=== PATIENT | male | born 1935 | race Caucasian/White ===

== ENCOUNTER → 2017-01-19 | Outpatient (CLI) | payer MEDICARE, OTHER | LOC: MW.CHUR 10:13 | PROVIDERS: ATTEND Urology | DX: R39.15 Urgency of urination (principal) | CPT/HCPCS: 36415; 51798; 81001; 84153; 99202 ==

== ENCOUNTER 2019-06-10 14:40 | Emergency (ER) | payer MEDICARE, OTHER ==
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
--- NOTE | 2019-06-10 15:32 | CT ---
Head CT Technique: Multiple axial sections through the brain were obtained. Intravenous contrast was not utilized. Comparison: Prior head CT study of 07/07/2015. Findings: Ventricles along with basal cisterns and sulci over the convexities are moderately prominent. Diffuse atherosclerotic calcification is seen within the vertebral vessels and carotid siphon. Minimal diminished density is noted within the periventricular compatible with small vessel ischemic demyelination change. No other abnormal parenchymal densities are seen. No evidence of intracranial hemorrhage. No midline shift or mass effect is seen. Slight mucosal thickening is noted within the right maxillary sinus and ethmoid sinuses. No acute paranasal sinus findings are seen. Minimal areas of mucosal thickening are seen within the inferior right mastoid sinus. No acute calvarial abnormality is seen. Impression: 1. Sinus findings which are felt to be pre-existing and incidental. 2. Senescent change as noted above. 3. No acute intracranial abnormality is appreciated. Diagnostic code #2 MTDD
[2019-06-10] MEDS ORDERED: 50% Dextrose in Water 50 ML Syringe IVPUSH ONE (15:37)
[2019-06-10 15:42] LABS: BLOOD UREA NITROGEN,BUN 24 mg/dL (7.0-18.0); CARBON DIOXIDE,CO2 29.1 mmol/L (21.0-32.0); CHLORIDE,CL 106 mmol/L (98-107); GLUCOSE RANDOM 82 mg/dL (74-106); LIPASE 52 U/L (73-393); POTASSIUM,K 4.3 mmol/L (3.5-5.1); SODIUM,NA 142 mmol/L (136-148)
--- NOTE | 2019-06-10 15:56 | CT ---
CT cervical spine Technique: Multiple axial sections were obtained from above C1 inferiorly through the T4 level. Reconstructed sagittal and coronal images were reviewed. Findings: Severe disc space narrowing at C5-C6 and C6-C7. Minimal spondylolisthesis at C5-C6 compatible with degenerative apophyseal change. Other degenerative apophyseal change is scattered throughout the spine. Degenerative change is noted between the dens anterior arch of C1. Bony structures are osteoporotic. No fracture is appreciated. No bony central canal stenosis. Impression: 1. Degenerative change and osteopenia. 2. Nothing acute is appreciated on CT study of the cervical spine. Diagnostic code #2 MTDD
--- NOTE | 2019-06-10 15:57 | CT ---
CT lumbar spine Technique: Multiple axial sections through the lumbar spine were obtained. Reconstructed coronal and sagittal images were reviewed. Findings: Vertebral body heights are maintained. Bony structures are osteopenic. Scattered degenerative apophyseal change is seen throughout lumbar spine. No abnormal subluxation is seen. No fracture is identified. No abnormal subluxation is seen. Nonobstructing calculi are seen within the left kidney. Impression: 1. Scattered apophyseal change throughout the lumbar spine. Osteopenia. Nonobstructing calculi within the left kidney. 2. No acute fracture or abnormal subluxation is seen. Diagnostic code #2 MTDD
--- NOTE | 2019-06-10 15:57 | CR ---
Chest: AP view of the chest was obtained. Comparison: No prior chest x-ray. Heart size and mediastinum are normal. Lungs are clear. Bony structures are osteopenic. Impression: Nothing acute is appreciated on AP chest x-ray. Diagnostic code #1 MTDD
--- NOTE | 2019-06-10 16:06 | CT ---
CT thoracic spine Technique: Multiple axial sections the thoracic spine were obtained. Reconstructed coronal and sagittal images were reviewed. Comparison: No prior thoracic spine imaging. Findings: Moderate compression deformity is noted of approximately T5. No definite acute fracture lines are seen and this is most likely old. Other vertebral body heights are maintained. Mild disc space narrowing is noted within the mid thoracic spine. No discrete fracture or abnormal subluxation is seen. No abnormal subluxation is noted. Impression: 1. Compression deformity of T5 most likely old. 2. Osteopenia and degenerative change. 3. Nothing acute is definitely seen. Diagnostic code #3 MTDD
== END 2019-06-10 16:45 | disposition home or self-care (01) ==
LOC: MW.ED 14:40
DX: E16.2 Hypoglycemia, unspecified (principal); Z88.5 Allergy status to narcotic agent; Z88.6 Allergy status to analgesic agent; Z79.82 Long term (current) use of aspirin; V49.9XXA Car occupant (driver) (passenger) injured in unspecified traffic accident, initial encounter
CPT/HCPCS: 36415; 70450; 71045; 72125; 72128; 72131; 80053; 81001; 82962; 83690; 85025; 93005; 96374; 99285; J7060; 99283

== ENCOUNTER 2019-08-03 16:14 | Emergency (ER) | payer MEDICARE, OTHER ==
[2019-08-03] MEDS ORDERED: Sodium Chloride 0.9% 2.5 ML Syringe FLUSH PRN (16:21)
[2019-08-03] MEDS ORDERED: Sodium Chloride 0.9% 10 ML Syringe FLUSH PRN (16:21)
--- NOTE | 2019-08-03 16:53 | CR ---
INDICATION: dizziness INDICATION: Dizziness TECHNIQUE: Chest 1 view. COMPARISON: 06/10/2019 FINDINGS: Cardiovascular and mediastinum: Heart size and vasculature are normal in caliber and appearance. Mediastinum is within normal limits. Lungs and pleural space: Lungs are clear. No sign of infiltrate. Stable probable 5 millimeter calcified granuloma right lower lobe. No sign of pleural effusion. No pneumothorax. Bones and soft tissues: No significant findings. IMPRESSION: No acute pulmonary or cardiac abnormalities. Stable 5 millimeter probable calcified granuloma right lower lobe. Dictated by Frank Del Valle MD @ 08/03/2019 4:50:52 PM Dictated by: Frank Del Valle MD @ 08/03/2019 16:51:01 (Electronically Signed)
[2019-08-03] MEDS ORDERED: Sodium Chloride 0.9% 1,000 ML IV ONE (16:58)
--- NOTE | 2019-08-03 16:58 | EDM.PDOC ---
ED HPI GENERAL MEDICAL PROBLEM - General Chief Complaint: General Stated Complaint: DIZZINESS AND DIABETIC Time Seen by Provider: 08/03/19 16:21 Source of Information: Reports: Patient History Limitations: Reports: No Limitations - History of Present Illness INITIAL COMMENTS - FREE TEXT/NARRATIVE: HISTORY AND PHYSICAL: History of present illness: Patient is an 84-year-old male who presents to the ED today with concern of dizziness and elevated sugars from his usual baseline over the past 3 days. Patient states that over the past 3 days his blood sugar has been around 200 at home and this is not typical for him. Patient states usually his blood sugars around 100. Patient states he also notices felt dizzy over the past couple days and thought maybe it was associated to his blood sugar. Patient has a history of type 1 diabetes. Patient denies any other symptoms or concerns. Patient denies fever, chills, chest pain, shortness of breath, or cough. Denies headache, neck stiff ness, change in vision, syncope, or near syncope. Denies nausea, vomiting, abdominal pain, diarrhea, constipation, or dysuria. Has not noted any blood in urine or stool. Patient has been eating and drinking appropriately. Review of systems: As per history of present illness and below otherwise all systems reviewed and negative. Past medical history: As per history of present illness and as reviewed below otherwise noncontributory. Surgical history: As per history of present illness and as reviewed below otherwise noncontributory. Social history: See social history for further information Family history: As per history of present illness and as reviewed below otherwise noncontributory. Physical exam: General: Patient is alert, oriented, and in no acute distress. Patient laying comfortably on exam table. HEENT: Atraumatic, normocephalic, pupils equal and reactive bilaterally, negative for conjunctival pallor or scleral icterus, mucous membranes moist, TMs normal bilaterally, throat clear, neck supple, nontender, trachea midline. No drooling or trismus noted. No meningeal signs. No hot potato voice noted. Lungs: Clear to auscultation, breath sounds equal bilaterally, chest nontender. Heart: S1S2, regular rate and rhythm without overt murmur Abdomen: Soft, nondistended, nontender. Negative for masses or hepatosplenomegaly. Negative for costovertebral tenderness. Pelvis: Stable nontender. Genitourinary: Deferred. Rectal: Deferred. Skin: Intact, warm, dry. No lesions or rashes noted. Extremities: Atraumatic, negative for cords or calf pain. Neurovascular unremarkable. Neuro: Awake, alert, oriented. Cranial nerves II through XII unremarkable. Cerebellum unremarkable. Motor and sensory unremarkable throughout. Exam nonfocal. Notes: Admission for observation was offered to patient but he declines at this time. All risks versus benefits discussed with patient and expresses understanding. Voices understanding and is agreeable to plan of care. Denies any further questions or concerns at this time. Diagnostics: CBC, CMP, UA, EKG, chest x-ray, troponin, head CT, urine culture Therapeutics: NS Prescription: Keflex Impression: Dizziness Urinary tract infection Plan: 1. Take medication as prescribed. You can use Tylenol as directed for pain and discomfort. 2. Follow-up with her primary care provider as discussed. Return to the ED as needed and as discussed. Definitive disposition and diagnosis as appropriate pending reevaluation and review of above. - Related Data Allergies Allergy/AdvReac Type Severity Reaction Status Date / Time acetaminophen [From Vicodin] Allergy weird Verified 08/03/19 16:30 feeling codeine Allergy unsure Verified 08/03/19 16:30 hydrocodone bitartrate Allergy weird Verified 08/03/19 16:30 [From Vicodin] feeling Home Meds: Home Meds Insulin Aspart [Novolog Flexpen] 3 units SQ TIDAC 07/07/15 [History] Insulin Glarg,Human.Rec.Analog [Lantus] 6 units SQ ACBREAKFAST 07/07/15 [History ] Aspirin 81 mg PO DAILY 06/10/19 [History] Past Medical History HEENT History: Reports: None Cardiovascular History: Reports: None Respiratory History: Reports: None Gastrointestinal History: Reports: None Genitourinary History: Reports: None Musculoskeletal History: Reports: None Neurological History: Reports: None Psychiatric History: Reports: None Endocrine/Metabolic History: Reports: Diabetes, Type I Hematologic History: Reports: None Immunologic History: Reports: None Oncologic (Cancer) History: Reports: None Dermatologic History: Reports: None - Infectious Disease History Infectious Disease History: Reports: Measles - Past Surgical History Head Surgeries/Procedures: Reports: None HEENT Surgical History: Reports: None Cardiovascular Surgical History: Reports: Other (See Below) Other Cardiovascular Surgeries/Procedures: Angioplasty. Respiratory Surgical History: Reports: None GI Surgical History: Reports: None Male Surgical History: Reports: None Endocrine Surgical History: Reports: None Neurological Surgical History: Reports: None Musculoskeletal Surgical History: Reports: None Oncologic Surgical History: Reports: None Dermatological Surgical History: Reports: None Social & Family History - Family History Family Medical History: Noncontributory - Tobacco Use Smoking Status *Q: Never Smoker Second Hand Smoke Exposure: No - Caffeine Use Caffeine Use: Reports: None - Recreational Drug Use Recreational Drug Use: No ED ROS GENERAL - Review of Systems Review Of Systems: Comprehensive ROS is negative, except as noted in HPI. ED EXAM, GENERAL - Physical Exam Exam: See Below (see dictation) Course - Vital Signs Last Recorded V/S: Last Vital Signs Temp 97.5 F 08/03/19 16:29 Pulse 64 08/03/19 16:29 Resp 16 08/03/19 16:29 BP 164/88 H 08/03/19 16:29 Pulse Ox 98 08/03/19 16:29 - Orders/Labs/Meds Orders: Active Orders 24 hr Category Date Time Status EKG Documentation Completion [RC] STAT Care 08/03/19 16:22 Active CULTURE URINE [RM] Stat Lab 08/03/19 17:27 Received Sodium Chloride 0.9% [Normal Saline] 1,000 ml Med 08/03/19 16:58 Active IV STAT Sodium Chloride 0.9% [Saline Flush] Med 08/03/19 16:21 Active 10 ml FLUSH ASDIRECTED PRN Sodium Chloride 0.9% [Saline Flush] Med 08/03/19 16:21 Active 2.5 ml FLUSH ASDIRECTED PRN Saline Lock Insert [OM.PC] Stat Oth 08/03/19 16:21 Ordered Medication Orders Sodium Chloride (Normal Saline) 1,000 mls @ 500 mls/hr IV STAT ONE Stop: 08/03/19 18:57 Last Admin: 08/03/19 17:28 Dose: 500 mls/hr Sodium Chloride (Saline Flush) 10 ml FLUSH ASDIRECTED PRN PRN Reason: Keep Vein Open Sodium Chloride (Saline Flush) 2.5 ml FLUSH ASDIRECTED PRN PRN Reason: Keep Vein Open Labs: Laboratory Tests 08/03/19 08/03/19 08/03/19 Range/Units 16:20 16:20 17:27 WBC 4.83 (4.0-11.0) K/uL RBC 3.88 L (4.50-5.90) M/uL Hgb 12.1 L (13.0-17.0) g/dL Hct 37.7 L (38.0-50.0) % MCV 97.2 (80.0-98.0) fL MCH 31.2 (27.0-32.0) pg MCHC 32.1 (31.0-37.0) g/dL RDW Std Deviation 46.0 (28.0-62.0) fl RDW Coeff of Thiago 13 (11.0-15.0) % Plt Count 207 (150-400) K/uL MPV 9.20 (7.40-12.00) fL Neut % (Auto) 46.0 L (48.0-80.0) % Lymph % (Auto) 40.2 H (16.0-40.0) % [place] % (Auto) 12.4 (0.0-15.0) % Eos % (Auto) 1.0 (0.0-7.0) % Baso % (Auto) 0.4 (0.0-1.5) % Neut # (Auto) 2.2 (1.4-5.7) K/uL Lymph # (Auto) 1.9 (0.6-2.4) K/uL [place] # (Auto) 0.6 (0.0-0.8) K/uL Eos # (Auto) 0.1 (0.0-0.7) K/uL Baso # (Auto) 0.0 (0.0-0.1) K/uL Nucleated RBC % 0.0 /100WBC Nucleated RBCs # 0 K/uL Sodium 140 (136-148) mmol/L Potassium 4.2 (3.5-5.1) mmol/L Chloride 104 (98-107) mmol/L Carbon Dioxide 29.1 (21.0-32.0) mmol/L BUN 22 H (7.0-18.0) mg/dL Creatinine 1.0 (0.8-1.3) mg/dL Est Cr Clr Drug Dosing 45.83 mL/min Estimated GFR (MDRD) > 60.0 ml/min Glucose 91 (74-106) mg/dL Calcium 8.8 (8.5-10.1) mg/dL Total Bilirubin 0.3 (0.2-1.0) mg/dL AST 20 (15-37) IU/L ALT 22 (14-63) IU/L Alkaline Phosphatase 65 (46-116) U/L Troponin I < 0.050 (0.000-0.056) ng/mL Total Protein 6.9 (6.4-8.2) g/dL Albumin 3.7 (3.4-5.0) g/dL Globulin 3.2 (2.6-4.0) g/dL Albumin/Globulin Ratio 1.2 (0.9-1.6) Lipase 56 L (73-393) U/L Urine Color YELLOW Urine Appearance HAZY Urine pH 6.0 (5.0-8.0) Ur Specific [place] 1.025 (1.001-1.035) Urine Protein NEGATIVE (NEGATIVE) mg/dL Urine Glucose (UA) NEGATIVE (NEGATIVE) mg/dL Urine Ketones NEGATIVE (NEGATIVE) mg/dL Urine Occult Blood TRACE-INTACT H (NEGATIVE) Urine Nitrite NEGATIVE (NEGATIVE) Urine Bilirubin NEGATIVE (NEGATIVE) Urine Urobilinogen 0.2 (<2.0) EU/dL Ur Leukocyte Esterase TRACE H (NEGATIVE) Urine RBC 0-3 (0-2/HPF) Urine WBC 2-6 (0-5/HPF) Ur Epithelial Cells RARE (NONE-FEW) Urine Bacteria RARE (NEGATIVE) Meds: Medications Generic Name Dose Route Start Last Admin Trade Name Freq PRN Reason Stop Dose Admin Sodium Chloride 1,000 mls @ 500 mls/hr 08/03/19 16:58 08/03/19 17:28 Normal Saline IV 08/03/19 18:57 500 mls/hr STAT ONE Administration Sodium Chloride 10 ml 08/03/19 16:21 Saline Flush FLUSH ASDIRECTED PRN Keep Vein Open Sodium Chloride 2.5 ml 08/03/19 16:21 Saline Flush FLUSH ASDIRECTED PRN Keep Vein Open Departure - Departure Time of Disposition: 18:02 Disposition: Home, Self-Care 01 Clinical Impression: Dizziness Urinary tract infection Qualifiers: Urinary tract infection type: acute cystitis Hematuria presence: without hematuria Qualified Code(s): N30.00 - Acute cystitis without hematuria - Discharge Information Referrals: Romel Bledsoe MD [Primary Care Provider] - Forms: ED Department Discharge Additional Instructions: The following information is given to patients seen in the emergency department who are being discharged to home. This information is to outline your options for follow-up care. We provide all patients seen in our emergency department with a follow-up referral. The need for follow-up, as well as the timing and circumstances, are variable depending upon the specifics of your emergency department visit. If you don't have a primary care physician on staff, we will provide you with a referral. We always advise you to contact your personal physician following an emergency department visit to inform them of the circumstance of the visit and for follow-up with them and/or the need for any referrals to a consulting specialist. The emergency department will also refer you to a specialist when appropriate. This referral assures that you have the opportunity for follow-up care with a specialist. All of these measure are taken in an effort to provide you with optimal care, which includes your follow-up. Under all circumstances we always encourage you to contact your private physician who remains a resource for coordinating your care. When calling for follow-up care, please make the office aware that this follow-up is from your recent emergency room visit. If for any reason you are refused follow-up, please contact the [facility] Emergency Department at and asked to speak to the emergency department charge nurse. [facility] [address] [place] [id number] [place] [address] 1. Take medication as prescribed. You can use Tylenol as directed for pain and discomfort. 2. Follow-up with her primary care provider as discussed. Return to the ED as needed and as discussed. - My Orders Last 24 Hours: My Active Orders 08/03/19 16:21 Sodium Chloride 0.9% [Saline Flush] 10 ml FLUSH ASDIRECTED PRN Sodium Chloride 0.9% [Saline Flush] 2.5 ml FLUSH ASDIRECTED PRN Saline Lock Insert [OM.PC] Stat 08/03/19 16:22 EKG Documentation Completion [RC] STAT 08/03/19 16:58 Sodium Chloride 0.9% [Normal Saline] 1,000 ml IV STAT 08/03/19 17:27 CULTURE URINE [RM] Stat - Assessment/Plan Last 24 Hours: My Active Orders 08/03/19 16:21 Sodium Chloride 0.9% [Saline Flush] 10 ml FLUSH ASDIRECTED PRN Sodium Chloride 0.9% [Saline Flush] 2.5 ml FLUSH ASDIRECTED PRN Saline Lock Insert [OM.PC] Stat 08/03/19 16:22 EKG Documentation Completion [RC] STAT 08/03/19 16:58 Sodium Chloride 0.9% [Normal Saline] 1,000 ml IV STAT 08/03/19 17:27 CULTURE URINE [RM] Stat
[2019-08-03 17:22] LABS: BLOOD UREA NITROGEN,BUN 22 mg/dL (7.0-18.0); CARBON DIOXIDE,CO2 29.1 mmol/L (21.0-32.0); CHLORIDE,CL 104 mmol/L (98-107); GLUCOSE RANDOM 91 mg/dL (74-106); LIPASE 56 U/L (73-393); POTASSIUM,K 4.2 mmol/L (3.5-5.1); SODIUM,NA 140 mmol/L (136-148)
--- NOTE | 2019-08-03 17:46 | CT ---
INDICATION: Pain and dizziness for few weeks TECHNIQUE: CT head without contrast. COMPARISON: 06/10/2019 FINDINGS: CSF spaces: Within normal limits for age. Brain parenchyma: The kim-white differentiation is normal. No sign of mass, hemorrhage, or midline shift. Diffuse volume loss. Calcified plaque involving the vertebral arteries. Skull base and calvarium: Small amount of fluid in the right mastoid air cells. The visualized orbits are grossly unremarkable. No skull fractures. IMPRESSION: No acute intracranial abnormalities. No masses, edema or hemorrhage. Diffuse volume loss. Dictated by Frank Del Valle MD @ 08/03/2019 5:45:19 PM Please note that all CT scans at this facility use dose modulation, iterative reconstruction, and/or weight-based dosing when appropriate to reduce radiation dose to as low as reasonably achievable. Dictated by: Frank Del Valle MD @ 08/03/2019 17:45:24 (Electronically Signed)
== END 2019-08-03 18:21 | disposition home or self-care (01) ==
LOC: MW.ED 16:14
DX: R42 Dizziness and giddiness (principal); N30.00 Acute cystitis without hematuria; E10.9 Type 1 diabetes mellitus without complications; Z79.82 Long term (current) use of aspirin; Z88.8 Allergy status to other drugs, medicaments and biological substances; Z88.5 Allergy status to narcotic agent
CPT/HCPCS: 36415; 70450; 71045; 80053; 81001; 83690; 84484; 85025; 87086; 93005; 96360; 99285; J7030; 99284

== ENCOUNTER 2019-10-20 07:07 | Emergency (ER) | payer MEDICARE, OTHER ==
--- NOTE | 2019-10-20 07:56 | EDM.PDOC ---
ED HPI GENERAL MEDICAL PROBLEM - General Chief Complaint: Neuro Symptoms/Deficits Stated Complaint: NUMBNESS AND PAIN IN LT ARM Time Seen by Provider: 10/20/19 08:00 Source of Information: Reports: Patient History Limitations: Reports: No Limitations - History of Present Illness INITIAL COMMENTS - FREE TEXT/NARRATIVE: Patient is an 84-year-old male with a past medical history of cardiovascular disease, hypertension presenting with a chief complaint of left hand pain and tingling. Patient states he has had the symptoms for the past several months. Patient states the symptoms occur intermittently. Patient states the pain was worse this morning. Patient states the pain is located on the palmar surface surface of the left hand primarily over the index and middle fingers. Pain was severe this morning he did not have any associated weakness. Pain resolved spontaneously and feels much better now. Patient is never been evaluated for this before. Patient denies any chest pain, back pain, shortness of breath. Pmhx: See HPI Pshx: None Family Hx: noncontributory Smoking history? no Etoh use? none Drug use? none In addition to that documented in the HPI above, the additional ROS was obtained : Constitutional: Denies fevers or chills Eyes: Denies vision changes ENMT: Denies sore throat CV: Denies chest pain Resp: Denies SOB GI: Denies vomiting or diarrhea : Denies painful urination MSK: Denies recent trauma Skin: Denies new rashes Neuro: Per HPI Endocrine: Denies unexpected weight loss Heme: Denies bleeding disorders I have reviewed the triage vital signs Const: Well nourished, well developed, appears stated age Eyes: PERRL, no conjunctival injection HENT: NCAT, Neck supple without meningismus CV: RRR, Warm, well-perfused extremities RESP: CTAB, Unlabored respiratory effort GI: soft, non-tender, non-distended, no masses MSK: Normal hands bilaterally strong radial pulse bilaterally. Negative Tinel and negative Phalen's sign. No gross deformities appreciated Skin: Warm, dry. No rashes Neuro: Alert, promotional demonstrator II-XII grossly intact. Sensation and motor function of extremities grossly intact. Psych: Appropriate mood and affect Assessment and plan: Patient is 84-year-old male presenting with chief complaint of left hand pain. Likely impression is carpal tunnel syndrome versus some sort of radiculopathy. Patient has no evidence of heart attack or stroke. Patient given symptomatic symptomatic relief education. Patient instructed to follow-up with primary physician which he has an appointment later today. Patient given strict recurrent return precautions. Left Hand Pain Score (Numeric/FACES): 8 - Related Data Allergies Allergy/AdvReac Type Severity Reaction Status Date / Time acetaminophen [From Vicodin] Allergy weird Verified 10/20/19 07:16 feeling codeine Allergy unsure Verified 10/20/19 07:16 hydrocodone bitartrate Allergy weird Verified 10/20/19 07:16 [From Vicodin] feeling Home Meds: Home Meds Insulin Aspart [Novolog Flexpen] 3 units SQ TIDAC 07/07/15 [History] Insulin Glarg,Human.Rec.Analog [Lantus] 5 units SQ ACBREAKFAST 07/07/15 [History ] Aspirin 81 mg PO ASDIRECTED PRN 06/10/19 [History] Past Medical History HEENT History: Reports: None Cardiovascular History: Reports: None Respiratory History: Reports: None Gastrointestinal History: Reports: None Genitourinary History: Reports: None Musculoskeletal History: Reports: None Neurological History: Reports: None Psychiatric History: Reports: None Endocrine/Metabolic History: Reports: Diabetes, Type I Hematologic History: Reports: None Immunologic History: Reports: None Oncologic (Cancer) History: Reports: None Dermatologic History: Reports: None - Infectious Disease History Infectious Disease History: Reports: Measles - Past Surgical History Head Surgeries/Procedures: Reports: None HEENT Surgical History: Reports: None Cardiovascular Surgical History: Reports: Other (See Below) Other Cardiovascular Surgeries/Procedures: Angioplasty. Respiratory Surgical History: Reports: None GI Surgical History: Reports: Appendectomy Male Surgical History: Reports: None Endocrine Surgical History: Reports: None Neurological Surgical History: Reports: None Musculoskeletal Surgical History: Reports: None Oncologic Surgical History: Reports: None Dermatological Surgical History: Reports: None Social & Family History - Family History Family Medical History: Noncontributory - Tobacco Use Smoking Status *Q: Never Smoker Second Hand Smoke Exposure: No - Caffeine Use Caffeine Use: Reports: Coffee - Recreational Drug Use Recreational Drug Use: No ED ROS GENERAL - Review of Systems Review Of Systems: See Below ED EXAM, NEURO - Physical Exam Exam: See Below *Q Meaningful Use (ADM) - VTE *Q VTE Criteria *Q: ER note Course - Vital Signs Last Recorded V/S: Last Vital Signs Temp 36.6 C 10/20/19 08:35 Pulse 65 10/20/19 08:35 Resp 18 10/20/19 08:35 BP 118/57 L 10/20/19 08:35 Pulse Ox 97 10/20/19 08:35 Departure - Departure Time of Disposition: 09:00 Disposition: Home, Self-Care 01 Clinical Impression: Carpal tunnel syndrome - Discharge Information Instructions: Carpal Tunnel Syndrome, [id number] Referrals: Santos Lemus MD [Primary Care Provider] - Forms: ED Department Discharge Additional Instructions: The following information is given to patients seen in the emergency department who are being discharged to home. This information is to outline your options for follow-up care. We provide all patients seen in our emergency department with a follow-up referral. The need for follow-up, as well as the timing and circumstances, are variable depending upon the specifics of your emergency department visit. If you don't have a primary care physician on staff, we will provide you with a referral. We always advise you to contact your personal physician following an emergency department visit to inform them of the circumstance of the visit and for follow-up with them and/or the need for any referrals to a consulting specialist. The emergency department will also refer you to a specialist when appropriate. This referral assures that you have the opportunity for follow-up care with a specialist. All of these measure are taken in an effort to provide you with optimal care, which includes your follow-up. Under all circumstances we always encourage you to contact your private physician who remains a resource for coordinating your care. When calling for follow-up care, please make the office aware that this follow-up is from your recent emergency room visit. If for any reason you are refused follow-up, please contact the [facility] Emergency Department at and asked to speak to the emergency department charge nurse. [facility] [address] [place] [id number] [id number] Sepsis Event Note - Evaluation Sepsis Screening Result: No Definite Risk - Focused Exam Vital Signs: Vital Signs Temp Pulse Resp BP Pulse Ox 10/20/19 08:35 36.6 C 65 18 118/57 L 97 10/20/19 07:18 36.2 C 71 16 99/47 L 97 Date Exam was Performed: 10/20/19 Time Exam was Performed: 13:35
== END 2019-10-20 08:40 | disposition home or self-care (01) ==
LOC: MW.ED 07:07
CPT/HCPCS: 99282; 99283

== ENCOUNTER 2021-01-01 00:19 | Emergency (ER) | payer MEDICARE, OTHER ==
--- NOTE | 2021-01-01 00:58 | EDM.PDOC ---
ED HPI GENERAL MEDICAL PROBLEM - General Chief Complaint: Genitourinary Problem Stated Complaint: BLEEDING IN GROIN Time Seen by Provider: 01/01/21 00:20 - History of Present Illness INITIAL COMMENTS - FREE TEXT/NARRATIVE: 85-year-old male history of diabetes not on blood thinners no other significant medical problems presenting with gross hematuria. The patient has a history of urinary frequency and occasional incontinence. He was running to the bathroom tonight was pinching his penis as he has not in the past he urinated and then noted some blood coming from the meatus. He otherwise feels well he has no pain no sense of bladder fullness no flank pain no fevers he otherwise feels his normal self bleeding appears to resolved at this point. Patient has an appointment with his primary care doctor at 1045 tomorrow morning. - Related Data Allergies Allergy/AdvReac Type Severity Reaction Status Date / Time acetaminophen [From Vicodin] Allergy weird Verified 01/01/21 00:26 feeling codeine Allergy unsure Verified 01/01/21 00:26 hydrocodone bitartrate Allergy weird Verified 01/01/21 00:26 [From Vicodin] feeling Home Meds: Home Meds Insulin Aspart [Novolog Flexpen] 3 units SQ TIDAC 07/07/15 [History] Insulin Glarg,Human.Rec.Analog [Lantus] 5 units SQ ACBREAKFAST 07/07/15 [History] Aspirin 81 mg PO ASDIRECTED PRN 06/10/19 [History] Past Medical History HEENT History: Reports: None Cardiovascular History: Reports: None Respiratory History: Reports: None Gastrointestinal History: Reports: None Genitourinary History: Reports: None Musculoskeletal History: Reports: None Neurological History: Reports: None Psychiatric History: Reports: None Endocrine/Metabolic History: Reports: Diabetes, Type I Hematologic History: Reports: None Immunologic History: Reports: None Oncologic (Cancer) History: Reports: None Dermatologic History: Reports: None - Infectious Disease History Infectious Disease History: Reports: Measles - Past Surgical History Head Surgeries/Procedures: Reports: None HEENT Surgical History: Reports: None Cardiovascular Surgical History: Reports: Other (See Below) Other Cardiovascular Surgeries/Procedures: Angioplasty. Respiratory Surgical History: Reports: None GI Surgical History: Reports: Appendectomy Male Surgical History: Reports: None Endocrine Surgical History: Reports: None Neurological Surgical History: Reports: None Musculoskeletal Surgical History: Reports: None Oncologic Surgical History: Reports: None Dermatological Surgical History: Reports: None Social & Family History - Family History Family Medical History: No Pertinent Family History - Tobacco Use Tobacco Use Status *Q: Never Tobacco User - Caffeine Use Caffeine Use: Reports: None - Recreational Drug Use Recreational Drug Use: No ED ROS GENERAL - Review of Systems Review Of Systems: See Below Free Text/Narrative/Comment: General: No fever. Skin: No rash. Eyes: No vision problems. ENT: No sore throat. Neck: No neck stiffness. Respiratory: No shortness of breath. Cardiac: No chest pain. Gastrointestinal: No nausea, vomiting or abdominal pain. Urinary: Per HPI Musculoskeletal: No myalgias/arthralgias. Neurologic: No headache. ED EXAM, GENERAL - Physical Exam Exam: See Below Free Text/Narrative:: General Appearance: No acute distress, appears comfortable Skin: No rash HEENT: Normocephalic/atraumatic, sclera anicteric, mucous membranes moist Neck: Normal range of motion Abdomen: Soft, non-tender : Normal external male genitalia bilaterally descended nonswollen testicles dried blood is noted in the depends as well as minimal dried blood on the glans of the penis there is no tenderness there is no sign of laceration or trauma the meatus itself appears normal no suprapubic fullness Musculoskeletal: No edema or tenderness Neurologic: Awake, alert, no obvious deficits, moving all extremities Psychiatric: Appropriate, cooperative Course - Vital Signs Last Recorded V/S: Last Vital Signs Temp 97.6 F 01/01/21 00:28 Pulse 72 01/01/21 00:28 Resp 20 01/01/21 00:28 BP 145/69 H 01/01/21 00:28 Pulse Ox 97 01/01/21 00:28 - Orders/Labs/Meds Labs: Laboratory Tests 01/01/21 Range/Units 00:40 Urine Color YELLOW Urine Appearance CLOUDY Urine pH 5.0 (5.0-8.0) Ur Specific [place] >= 1.030 (1.001-1.035) Urine Protein NEGATIVE (NEGATIVE) mg/dL Urine Glucose (UA) NEGATIVE (NEGATIVE) mg/dL Urine Ketones NEGATIVE (NEGATIVE) mg/dL Urine Occult Blood LARGE H (NEGATIVE) Urine Nitrite NEGATIVE (NEGATIVE) Urine Bilirubin NEGATIVE (NEGATIVE) Urine Urobilinogen 0.2 (<2.0) EU/dL Ur Leukocyte Esterase NEGATIVE (NEGATIVE) Urine RBC TOO NUMEROUS TO CT (0-2/HPF) Urine WBC 2-4 (0-5/HPF) Ur Epithelial Cells OCCASIONAL (NONE-FEW) Urine Bacteria 1+ H (NEGATIVE) Urine Mucus LIGHT (NONE-MOD) Departure - Departure Time of Disposition: :19 Disposition: Home, Self-Care 01 Condition: Good Clinical Impression: Hematuria - Discharge Information *PRESCRIPTION DRUG MONITORING PROGRAM REVIEWED*: Not Applicable *COPY OF PRESCRIPTION DRUG MONITORING REPORT IN PATIENT MELANIA: Not Applicable Instructions: Hematuria, Adult Referrals: Santos Lemus MD [Primary Care Provider] - Forms: ED Department Discharge Additional Instructions: Your urine sample today did not show any signs of an acute urinary tract infection. Please be sure to keep your appointment with your primary care doctor this morning. The following information is given to patients seen in the emergency department who are being discharged to home. This information is to outline your options for follow-up care. We provide all patients seen in our emergency department with a follow-up referral. The need for follow-up, as well as the timing and circumstances, are variable depending upon the specifics of your emergency department visit. If you don't have a primary care physician on staff, we will provide you with a referral. We always advise you to contact your personal physician following an emergency department visit to inform them of the circumstance of the visit and for follow-up with them and/or the need for any referrals to a consulting specialist. The emergency department will also refer you to a specialist when appropriate. This referral assures that you have the opportunity for follow-up care with a specialist. All of these measure are taken in an effort to provide you with optimal care, which includes your follow-up. Under all circumstances we always encourage you to contact your private physician who remains a resource for coordinating your care. When calling for follow-up care, please make the office aware that this follow-up is from your recent emergency room visit. If for any reason you are refused follow-up, please contact the [facility] Emergency Department at and asked to speak to the emergency department charge nurse. Sepsis Event Note (ED) - Evaluation Sepsis Screening Result: No Definite Risk - Focused Exam Vital Signs: Vital Signs Temp Pulse Resp BP Pulse Ox 01/01/21 00:28 97.6 F 72 20 145/69 H 97 - Assessment/Plan Assessment:: 85-year-old male presenting with gross hematuria is likely related to mild urethral trauma versus UTI urinalysis is pending. Patient's PVR was 10 mL given this no concern for acute obstruction. Patient has no symptoms at this time. Given this I do not think Landa[place] placement is necessary. If patient has UTI would certainly start on antibiotics otherwise patient will follow up with his primary care doctor this morning as scheduled. UA negative for UTI. Pt discharged with previously scheduled follow-up.
== END 2021-01-01 01:47 | disposition home or self-care (01) ==
LOC: MW.ED 00:19
DX: R31.0 Gross hematuria (principal); E10.9 Type 1 diabetes mellitus without complications; Z88.5 Allergy status to narcotic agent; Z88.6 Allergy status to analgesic agent
CPT/HCPCS: 51798; 81001; 99282; 99283-25

== ENCOUNTER 2021-03-03 22:05 | Emergency (ER) | payer MEDICARE, OTHER ==
[2021-03-03] MEDS ORDERED: Ciprofloxacin 500 MG Tab PO ONE (22:19)
[2021-03-03] MEDS ORDERED: Cephalexin 500 MG Cap PO ONE (22:20)
[2021-03-03] MEDS ORDERED: Diphtheria,Pertussis(Acell),Tetanus Vaccine 0.5 ML Syringe IM ONE (22:20)
--- NOTE | 2021-03-03 22:26 | EDM.PDOC ---
ED HPI GENERAL MEDICAL PROBLEM - General Chief Complaint: Skin Complaint Stated Complaint: STEPPED ON A RUSY NAIL Time Seen by Provider: 03/03/21 22:19 - History of Present Illness INITIAL COMMENTS - FREE TEXT/NARRATIVE: HISTORY AND PHYSICAL: History of present illness: 85-year-old gentleman with a history significant for diabetes who presents to the ER today secondary to stepping on a marysol nail while wearing sneakers. Lita ent reports that there was a nail through a piece of plywood that he stepped on and it went through his shoe and into his right foot. Patient denies any other symptomatology or complaints. Patient reports that his tetanus status is not up-to-date. Patient is allergic to acetaminophen codeine and hydrocodone. Patient denies any tobacco alcohol or drugs. Review of systems: As per history of present illness and below otherwise all systems reviewed and negative. Past medical history: As per history of present illness and as reviewed below otherwise noncontributory. Surgical history: As per history of present illness and as reviewed below otherwise noncontributory. Social history: No reported history of drug abuse. Family history: As per history of present illness and as reviewed below otherwise noncontributory. Physical exam: This patient was seen and evaluated during the 2019 SARS-CoV-2 novel coronavirus pandemic period. Community viral transmission is ongoing at time of this encounter and the emergency department is operating under pandemic response procedures. Constitutional: Patient is oriented to person, place, and time. Appears well- developed and well-nourished. No distress. HEENT: Moist mucous membranes Head: Normocephalic and atraumatic Eyes: Right eye exhibits no discharge. Left eye exhibits no discharge. No scleral icterus Neck: Normal range of motion. No tracheal deviation present. Cardiovascular: Normal rate and regular rhythm. Pulmonary: Effort normal, no respiratory distress. Abdominal: No distention Musculoskeletal: Normal range of motion Neurologic: Alert and oriented to person, place and time. Skin: [place], warm and dry. Psychiatric: Normal mood and affect. Behavior is normal. Judgment and thought content normal. Nursing note and vital signs have been reviewed Patient's ER physical exam is significant for a small puncture wound in his right plantar aspect of his foot. No surrounding erythema no active bleeding and no other deformity identified. Diagnostics: Right foot x-ray: No acute foreign body or acute bony abnormality. Therapeutics: Tdap 0.5 Cipro 500/Keflex 500 Assessment and plan: 85-year-old gentleman who presents ER today secondary to stepping on a marysol nail through his sneakers. Patient [place] x-ray obtained to rule out foreign body and will get started on Keflex and Cipro. Patient is a diabetic. Patient's tetanus that will be updated here in the ED. Reassessment at the time of disposition demonstrates that the patient is in no acute distress. The patient has remained stable throughout the entire ED visit and is without objective evidence for acute process requiring urgent intervention or hospitalization. The patient is stable for discharge, counseling is provided as documented above, discussed symptomatic treatment and specific conditions for return. I have spoken with the patient/caregiver and discussed todays findings, in addition to providing specific details for the plan of care. Questions are answered and there is agreement with the plan. Definitive disposition and diagnosis as appropriate pending reevaluation and review of above. - Related Data Allergies Allergy/AdvReac Type Severity Reaction Status Date / Time acetaminophen [From Vicodin] Allergy weird Verified 01/01/21 00:26 feeling codeine Allergy unsure Verified 01/01/21 00:26 hydrocodone bitartrate Allergy weird Verified 01/01/21 00:26 [From Vicodin] feeling Home Meds: Home Meds Insulin Aspart [Novolog Flexpen] 3 units SQ TIDAC 07/07/15 [History] Insulin Glarg,Human.Rec.Analog [Lantus] 5 units SQ ACBREAKFAST 07/07/15 [History] Levofloxacin [Levaquin] 500 mg PO DAILY #6 tablet 03/03/21 [Rx] Levothyroxine [Synthroid] 50 mcg PO DAILY 03/03/21 [History] cephALEXin [Keflex] 500 mg PO Q8H #20 cap 03/03/21 [Rx] Past Medical History HEENT History: Reports: None Cardiovascular History: Reports: None Respiratory History: Reports: None Gastrointestinal History: Reports: None Genitourinary History: Reports: None Musculoskeletal History: Reports: None Neurological History: Reports: None Psychiatric History: Reports: None Endocrine/Metabolic History: Reports: Diabetes, Type I Hematologic History: Reports: None Immunologic History: Reports: None Oncologic (Cancer) History: Reports: None Dermatologic History: Reports: None - Infectious Disease History Infectious Disease History: Reports: Measles - Past Surgical History Head Surgeries/Procedures: Reports: None HEENT Surgical History: Reports: None Cardiovascular Surgical History: Reports: Other (See Below) Other Cardiovascular Surgeries/Procedures: Angioplasty. Respiratory Surgical History: Reports: None GI Surgical History: Reports: Appendectomy Male Surgical History: Reports: None Endocrine Surgical History: Reports: None Neurological Surgical History: Reports: None Musculoskeletal Surgical History: Reports: None Oncologic Surgical History: Reports: None Dermatological Surgical History: Reports: None Social & Family History - Family History Family Medical History: No Pertinent Family History - Caffeine Use Caffeine Use: Reports: None ED ROS GENERAL - Review of Systems Review Of Systems: See Below ED EXAM, SKIN/RASH Exam: See Below Course - Vital Signs Last Recorded V/S: Last Vital Signs Temp 97.8 F 03/03/21 22:16 Pulse 69 03/03/21 22:16 Resp 16 03/03/21 22:16 BP 137/63 03/03/21 22:16 Pulse Ox 96 03/03/21 22:16 - Orders/Labs/Meds Orders: Active Orders 24 hr Category Date Time Status Vaccines to be Administered [RC] PER UNIT ROUTINE Care 03/03/21 22:20 Active Foot 2V Rt [CR] Stat Exams 03/03/21 22:20 Ordered Ciprofloxacin [Ciprofloxacin HCl] Med 03/03/21 22:19 Once 500 mg PO ONETIME ONE Diphth,Pertuss(Acell),Tet Vac [Boostrix] Med 03/03/21 22:20 Once 0.5 ml IM .ONCE ONE cephALEXin [Keflex] Med 03/03/21 22:20 Once 500 mg PO ONETIME ONE Medication Orders Ciprofloxacin (Ciprofloxacin 500 Mg Tab) 500 mg PO ONETIME ONE Stop: 03/03/21 22:20 Meds: Medications Generic Name Dose Route Start Last Admin Trade Name Freq PRN Reason Stop Dose Admin Ciprofloxacin 500 mg 03/03/21 22:19 Ciprofloxacin 500 Mg Tab PO 03/03/21 22:20 ONETIME ONE Departure - Departure Time of Disposition: 22:23 Disposition: Home, Self-Care 01 Condition: Good Clinical Impression: History of diabetes mellitus Foreign body in foot, right Qualifiers: Encounter type: initial encounter Qualified Code(s): S90.851A - Superficial foreign body, right foot, initial encounter - Discharge Information Instructions: Hand or Foot Foreign Body, Adult Referrals: Santos Lemus MD [Primary Care Provider] - Additional Instructions: You were seen and evaluated in the ER today secondary to stepping on a marysol nail. You will be given a prescription for Keflex and Cipro to take to prevent infection to your foot. Please keep a close eye on your foot daily and return to the ER if you see any signs or concerns of infection. Please follow-up with your doctor next week for reevaluation to make sure that you are healing well. The following information is given to patients seen in the emergency department who are being discharged to home. This information is to outline your options for follow-up care. We provide all patients seen in our emergency department with a follow-up referral. The need for follow-up, as well as the timing and circumstances, are variable depending upon the specifics of your emergency department visit. If you don't have a primary care physician on staff, we will provide you with a referral. We always advise you to contact your personal physician following an emergency department visit to inform them of the circumstance of the visit and for follow-up with them and/or the need for any referrals to a consulting specialist. The emergency department will also refer you to a specialist when appropriate. This referral assures that you have the opportunity for follow-up care with a specialist. All of these measure are taken in an effort to provide you with optimal care, which includes your follow-up. Under all circumstances we always encourage you to contact your private physician who remains a resource for coordinating your care. When calling for follow-up care, please make the office aware that this follow-up is from your recent emergency room visit. If for any reason you are refused follow-up, please contact the [facility] Emergency Department at and asked to speak to the emergency department charge nurse. [facility] [address] [place] [id number] [facility] [address] [place] [id number] Sepsis Event Note (ED) - Evaluation Sepsis Screening Result: No Definite Risk - Focused Exam Vital Signs: Vital Signs Temp Pulse Resp BP Pulse Ox 03/03/21 22:16 97.8 F 69 16 137/63 96 - My Orders Last 24 Hours: My Active Orders 03/03/21 22:19 Ciprofloxacin [Ciprofloxacin HCl] 500 mg PO ONETIME ONE 03/03/21 22:20 Vaccines to be Administered [RC] PER UNIT ROUTINE Foot 2V Rt [CR] Stat Diphth,Pertuss(Acell),Tet Vac [Boostrix] 0.5 ml IM .ONCE ONE cephALEXin [Keflex] 500 mg PO ONETIME ONE - Assessment/Plan Last 24 Hours: My Active Orders 03/03/21 22:19 Ciprofloxacin [Ciprofloxacin HCl] 500 mg PO ONETIME ONE 03/03/21 22:20 Vaccines to be Administered [RC] PER UNIT ROUTINE Foot 2V Rt [CR] Stat Diphth,Pertuss(Acell),Tet Vac [Boostrix] 0.5 ml IM .ONCE ONE cephALEXin [Keflex] 500 mg PO ONETIME ONE
--- NOTE | 2021-03-04 00:14 | CR ---
For Patients: As a result of the Cures Act, medical imaging exams and procedure reports are released immediately into your electronic medical record. You may view this report before your referring provider. If you have questions, please contact your health care provider. INDICATION: Stepped on nail. TECHNIQUE: Two views of the right foot. COMPARISON: None. IMPRESSION: No fracture is identified. No appreciable radiopaque foreign body. 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 Vascular calcifications. Dictated by Javed Alvarado MD @ 03/04/2021 12:11:15 AM Dictated by: Javed Avlarado MD @ 03/04/2021 00:11:38 (Electronically Signed)
== END 2021-03-03 22:55 | disposition home or self-care (01) ==
LOC: MW.ED 22:05
DX: S91.341A Puncture wound with foreign body, right foot, initial encounter (principal); E10.9 Type 1 diabetes mellitus without complications; Z88.6 Allergy status to analgesic agent; Z88.5 Allergy status to narcotic agent; Z23 Encounter for immunization; W45.8XXA Other foreign body or object entering through skin, initial encounter
CPT/HCPCS: 73620; 90471; 90715; 99283; A9270